=== PATIENT | male | born 1960 | race Caucasian/White ===

== ENCOUNTER 2019-07-10 18:32 | Inpatient (IN) | payer OTHER ==
[~2019-07-10] VITALS: Ht 165.1 cm; Wt 104.5 kg
[2019-07-10 16:00] VITALS: BP 162/92
[2019-07-10] MEDS ORDERED: SANDIMMUNE100 MG PO (19:24)
[2019-07-10] MEDS ORDERED: PREDNISONE2.5 MG PO (19:24)
[2019-07-10] MEDS ORDERED: NORVASC2.5 MG PO (19:26)
[2019-07-10] MEDS ORDERED: SYNTHROID50 MCG PO (19:27)
[2019-07-10] MEDS ORDERED: ELIQUIS5 MG PO (19:27)
[2019-07-10 20:00] VITALS: BP 147/94
[2019-07-10] MEDS ORDERED: NORVASC5 MG PO (20:16)
[2019-07-10] MEDS ORDERED: FUROSEMIDE20 MG PO (20:16)
[2019-07-10 21:35] LABS: BASOPHILS 0.4 % (0-2); EOSINOPHILS 2.3 % (0-7); HEMATOCRIT 35.1 % (42.0-54.0); HEMOGLOBIN 11.8 g/dL (13.5-17.5); IMMATURE GRANULOCYTES 0.1 % (0-5); LYMPHOCYTES 29.9 % (15-50); MCH 31.6 pg (26.0-34.0); MCHC 33.6 g/dL (31.0-37.0); MCV 93.9 fL (80.0-100.0); MEAN PLATELET VOLUME 9.6 fL (7.4-10.4); NEUTROPHILS 60.3 % (40-80); PLATELET COUNT 242 10x3/uL (130-400); RBC 3.74 10x6/uL (4.20-6.10); RDW 13.1 % (11.5-14.5); WBC 8.4 10x3/uL (4.8-10.8)
[2019-07-10 21:36] LABS: CKMB 1.1 U/L (0.0-3.6); CREATINE KINASE 125 UL (21-232); TROPONIN-I 0.029 ng/mL (0.000-0.060)
[2019-07-10 21:47] LABS: ANION GAP 12.6 mmol/L (8-16); CALCIUM 8.2 mg/dL (8.5-10.1); CARBON DIOXIDE 24.6 mmol/L (21.0-32.0); MAGNESIUM - SERUM 1.9 mg/dL (1.8-2.4); PHOSPHOROUS 3.8 mg/dL (2.5-4.9); POTASSIUM - SERUM 4.2 mmol/L (3.5-5.1)
[2019-07-10 22:55] VITALS: BP 147/94; Ht 165.1 cm; Wt 104.5 kg
[2019-07-11 02:53] LABS: INR 1.08 (0.85-1.17)
[2019-07-11 03:14] LABS: CKMB 1.1 U/L (0.0-3.6); CREATINE KINASE 110 UL (21-232); PRO BNP 883 pg/mL (0-125); THYROID STIMULATING HORMONE 1.62 uIU/mL (0.36-3.74); TROPONIN-I 0.037 ng/mL (0.000-0.060)
[2019-07-11 04:00] VITALS: BP 144/100; BP 146/85
[2019-07-11 08:56] VITALS: BP 146/94
[2019-07-11 09:21] LABS: CKMB 0.9 U/L (0.0-3.6); CREATINE KINASE 108 UL (21-232); TROPONIN-I 0.024 ng/mL (0.000-0.060)
--- NOTE | 2019-07-11 10:28 | NUR ---
LEAVING FOR STRESS TEST BY W/C.
[2019-07-11 11:23] LABS: BASOPHILS 0.7 % (0-2); CALCIUM 8.8 mg/dL (8.5-10.1); CARBON DIOXIDE 22.5 mmol/L (21.0-32.0); CREATININE - SERUM 3.9 mg/dL (0.6-1.3); EOSINOPHILS 2.9 % (0-7); HEMATOCRIT 37.6 % (42.0-54.0); HEMOGLOBIN 12.5 g/dL (13.5-17.5); IMMATURE GRANULOCYTES 0.4 % (0-5); LYMPHOCYTES 33.6 % (15-50); MCH 31.4 pg (26.0-34.0); MCHC 33.2 g/dL (31.0-37.0); MCV 94.5 fL (80.0-100.0); MEAN PLATELET VOLUME 10.1 fL (7.4-10.4); MONOCYTES 9.1 % (2-11); NEUTROPHILS 53.3 % (40-80); PLATELET COUNT 278 10x3/uL (130-400); POTASSIUM - SERUM 4.5 mmol/L (3.5-5.1); RBC 3.98 10x6/uL (4.20-6.10); RDW 13.1 % (11.5-14.5); WBC 7.7 10x3/uL (4.8-10.8)
--- NOTE | 2019-07-11 12:00 | NUR ---
BACK FROM STRESS TEST. DIET RESUMED.
[2019-07-11 15:48] LABS: BILIRUBIN NEGATIVE (NEGATIVE); GLUCOSE NEGATIVE (NEGATIVE); KETONE NEGATIVE (NEGATIVE); NITRITE NEGATIVE (NEGATIVE); SPECIFIC GRAVITY 1.005 (1.005-1.020); UROBILINOGEN NORMAL (NORMAL)
--- NOTE | 2019-07-11 16:05 | NUR ---
URINE SPECIMEN COLLECTED AND TAKEN TO LAB.
[2019-07-11 19:23] VITALS: BP 150/104
--- NOTE | 2019-07-11 19:39 | NUR ---
RECEIVED BEDSIDE REPORT. PATIENT IS ALERT AND ORIENTED, RESTING COMFORTABLY IN BED. RESPIRATIONS ARE EVEN AND UNLABORED. NO S/S OF DISTRESS. NO C/O PAIN. NEEDS MET. CALL LIGHT WITHIN REACH. WILL CPOC.
[2019-07-11 20:00] VITALS: BP 149/97
[2019-07-12 04:00] VITALS: BP 138/91
[2019-07-12 05:07] LABS: BASOPHILS 0.6 % (0-2); EOSINOPHILS 2.2 % (0-7); HEMATOCRIT 36.8 % (42.0-54.0); HEMOGLOBIN 12.5 g/dL (13.5-17.5); IMMATURE GRANULOCYTES 0.5 % (0-5); LYMPHOCYTES 30.5 % (15-50); MCH 31.7 pg (26.0-34.0); MCV 93.4 fL (80.0-100.0); MEAN PLATELET VOLUME 9.8 fL (7.4-10.4); MONOCYTES 10.6 % (2-11); NEUTROPHILS 55.6 % (40-80); PLATELET COUNT 260 10x3/uL (130-400); RBC 3.94 10x6/uL (4.20-6.10); RDW 13.1 % (11.5-14.5); WBC 8.8 10x3/uL (4.8-10.8)
[2019-07-12 05:17] LABS: CALCIUM 8.6 mg/dL (8.5-10.1); CARBON DIOXIDE 22.8 mmol/L (21.0-32.0); CREATININE - SERUM 4.1 mg/dL (0.6-1.3); MAGNESIUM - SERUM 1.9 mg/dL (1.8-2.4); PHOSPHOROUS 4.2 mg/dL (2.5-4.9); POTASSIUM - SERUM 4.8 mmol/L (3.5-5.1)
--- NOTE | 2019-07-12 07:15 | NUR ---
RECEIVED PT IN BED AAOX4 RESP UNLABORED SKIN W/D COLOR WNL DENIES ANY NEEDS OR DISCOMFORT AT THIS TIME NAD NOTED
[2019-07-12 10:17] VITALS: BP 140/90
[2019-07-12] MEDS ORDERED: ISOSORBIDE MONO20 MG PO (12:05)
--- NOTE | 2019-07-12 13:20 | NUR ---
REVIEWED DISCHARGE INSTRUCTIONS WITH PT STATES UNDERSTANDING COPY GIVEN DCD SALINE LOCK TO RT HAND SITE FREE OF REDNESS OR EDEMA PT DISCHARGED HOME IN STABLE CONDITION WITH ALL PERSONAL BELONGINGS
--- NOTE | 2019-07-15 12:01 | MORECARE ---
CASE MANAGEMENT DISCHARGE SUMMARY PATIENT: SARAH LAGOS UNIT: [id number] ADM DATE: 07/11/19 AGE: 59 : 64 SEX: M ROOM/BED: D.2116 AUTHOR: ADAMA DURON PHYSICIAN: REFERRING PHYSICIAN: YUMIKO DELGADO MD DATE OF SERVICE: 07/15/19 Discharge Plan Patient Name: SARAH LAGOS [facility] : 1960 Planned Disposition: Anticipated Discharge Date: Discharge Date: 07/12/2019 Expected LOS: Initial Reviewer: [email or web address] Initial Review Date: 07/10/2019 Generated: 07/15/19 1:00 pm Patient Name: SARAH LAGOS Page [phone] at 1201 All edits/amendments must be made on the electronic document DICTATION DATE: 07/15/19 1201 DIRECTOR OF OUTREACH: MARITZA 07/15/19 1201 RPT#: [id number] DC DATE:07/12/19 STATUS: DIS IN [facility] [address] [place] [address] END OF REPORT
== END 2019-07-12 13:20 | disposition home or self-care (01) | DRG 303 ==
LOC: D.M2 18:32 → OBSVTIME 18:32 → D.M2 18:32
PROVIDERS: Internal Medicine Nephrology; ADMIT Family Medicine; ATTEND Family Medicine
DX: I25.119 Atherosclerotic heart disease of native coronary artery with unspecified angina pectoris (principal); N18.4 Chronic kidney disease, stage 4 (severe); Z94.0 Kidney transplant status; N40.0 Benign prostatic hyperplasia without lower urinary tract symptoms; K21.9 Gastro-esophageal reflux disease without esophagitis; E03.9 Hypothyroidism, unspecified; I12.9 Hypertensive chronic kidney disease with stage 1 through stage 4 chronic kidney disease, or unspecified chronic kidney disease

== ENCOUNTER 2019-10-08 09:33 | Outpatient (CLI) | payer OTHER ==
[~2019-10-08] VITALS: Ht 170.2 cm; Wt 100.0 kg
--- NOTE | ~2019-10-08 | OP ---
PATIENT NAME: SARAH LAGOS MEDICAL RECORD: [id number] :64 LOCATION:D.CAT ADMISSION DATE: SURGEON: PITO MILLS MD DATE OF OPERATION: 10/08/2019 PROCEDURE: Left heart catheterization, selective coronary angiography, right femoral artery approach. CATHETERS: A 5-Malagasy sheath, 5/4 left and right Yennifer, 5/4 pig. The procedure was well tolerated. The patient returned to the carlson. Sheath removed. ExoSeal device placed. FINDINGS: Left ventriculography in 30-degree GRAY view: Normal wall motion and normal systolic function. CORONARY ANATOMY: LEFT MAIN: Left main is free of disease. LAD: Has elongated complex stenosis at proximal portion. This involves the first diagonal. The first diagonal itself is a large vessel and has about 80% stenosis distally. CIRCUMFLEX: Just after the previously placed stent has about 80% stenosis and there bifurcation of the AV groove, circ, and OM itself though large vessel. RIGHT CORONARY ARTERY: Has about 70% stenosis of the mid portion. IMPRESSION: Multivessel coronary artery disease. We will discuss possible coronary bypass grafting with Dr. Palumbo. LAD of the diagonal system will be quite difficult to fix from interventional standpoint. Further recommendations based on above. TRANSINT:[id number] Voice Confirmation ID: [id number] DOCUMENT ID: [id number] PITO MILLS MD CC: [id number] DICTATION DATE: 10/08/19 1349 CREASING MACHINE OPERATOR: 10/08/192136 DEP CLI 10/08/19 [id number] [place] [address]
--- NOTE | ~2019-10-08 | HEMODYNAMI ---
PATIENT:SARAH LAGOS MEDICAL RECORD: [id number] : 64 LOCATION:DSamiCAT ADMISSION DATE: 10/08/19 Generatedon:10/08/201913:43 Patient name: SARAH LAGOS Patient #: [id number] : 1960 Date of study: 10/08/2019 Page: Of Hemodynamic Procedure Report Patient Data Patient Demographics Procedure consent was obtained First Name: SARAH Gender: Male Last Name: DEMOND : 1960 Middle Initial: F Age: 59 year(s) Patient #: [id number] Race: SSN: [id number] Additional ID: [id number] Contact details Address: [address] [place] [address] State: [place] City: [place] Zip code: [address] Past Medical History Allergies: No known allergies Admission Admission Data Admission Date: 10/08/2019 Admission Time: 9:33 Arrival Date: 10/08/2019 Arrival Time: 0:00 Admit Source: Other Insurance Payor: Private health insurance [facility] #: [id number] Height (in.): 66.93 BSA: 2.11 (m2) Height (cm.): 170 BMI: 34.6 (kg/m2) Weight (lbs.): 220.46 Weight (kg.): 100 Lab Results Lab Result Date: 10/08/2019 Lab Result Time: 10:05 Biochemistry Name Units Result Min Max BUN mg/dl 47 --(----)-* 7 18 Creatinine mg/dl 4.4 --(----)-* 0.6 1.3 CBC Name Units Result Min Max Hematocrit % 36.3 *-(----)-- 42 54 Hemoglobin g/dl 12.3 *-(----)-- 13.5 17.5 Procedure Procedure Types Cath Procedure Diagnostic Procedure C [facility] w/Coronaries Procedure Description Procedure Date Procedure Date: 10/08/2019 Procedure Start Time: 13:30 Procedure End Time: 13:39 Procedure Staff Name Function Quinn Reyes MD Performing Physician Nikko Bar RT Monitor Devi Wilhelm RT Scrub Kelly Yost RN Nurse Procedure Data Cath Procedure Fluoroscopy Diagnostic fluoroscopy Total fluoroscopy Time: 1.1 time: 1.1 min min Diagnostic fluoroscopy Total fluoroscopy dose: 527 dose: 527 mGy mGy Contrast Material Contrast Material Type Amount (ml) Isovue 300 57 Entry Location Entry Primary Successful Side Size Upsize Upsize Entry Closure Succes sful Closure Location (Fr) 1 (Fr) 2 (Fr) Remarks Device Remarks Femoral Right 5 Fr Exoseal artery Estimated blood loss: 5 ml Diagnostic catheters Device Type Used For End Catheter Placement MULTIPACK JL 4.0 5Fr Procedure catheter MULTIPACK 3DRC 5Fr Procedure catheter MULTIPACK Pigtail 5 Fr Procedure catheter Procedure Complications No complications Procedure Medications Medication Administration Route Dosage Oxygen etCO2 Nasal cannula 2 l/min Lidocaine 2% added to field 20 Heparin Flush Bag added to field 2 bags (1000units/500ml NS) 0.9% NaCl I.V. 100 ml/hr Versed I.V. 1 mg Fentanyl I.V. 50 mcg Versed I.V. 1 mg Fentanyl I.V. 50 mcg Hemodynamics Rest BSA: 2.11 (m2) HGB: 12.3 (g/dl) O2 Consumption: Estimated: 259.42 (ml/min) O2 Co nsumption indexed: Estimated:122.95 (ml/min/m) Heart Rate: 83 (bpm) Pressure Samples Time Site Value (mmHg) Purpose Heart Use Rate(bpm) 13:35 LV 133/9,14 Snapshot 83 13:35 AO 134/83(108) Pullback 83 13:35 LV 210/37,-17 Pullback 83 Gradients Valve Time Site 1 Site 2 Mean SEP/DFP Peak To Heart Use (mmHg) (sec/min) Peak Rate (mmHg) (bpm) Aortic 13:35 LV AO 39 28 76 83 210/37,-17 134/83(108) Calculations Valve P-P Mean Valve Index Valve Source Name Gradient Area Flow (cm2) Aortic 76 39 76 39 Snapshots Pre Cath Intra NCS Post Cath Vital Signs Time Heart Resp SPO2 etCO2 NIBP (mmHg) Rhythm Pain Sedation Rate (ipm) (%) (mmHg) Status Level (bpm) 12:53:28 80 21 96 0 152/98(129) NSR 0 (11) 10(A) , No pain 12:57:58 78 12 96 0 161/103(138) NSR 0 (11) 10(A) , No pain 13:02:33 80 12 95 35.2 144/96(119) NSR 0 (11) 10(A) , No pain 13:07:01 86 17 96 24.7 141/92(121) NSR 0 (11) 10(A) , No pain 13:11:25 81 17 95 33 148/97(122) NSR 0 (11) 10(A) , No pain 13:15:54 84 11 96 36 152/103(122) NSR 0 (11) 10(A) , No pain 13:20:20 80 14 93 30.7 149/95(124) NSR 0 (11) 10(A) , No pain 13:24:48 84 21 96 33.7 143/96(124) NSR 0 (11) 10(A) , No pain 13:29:17 86 11 93 42 138/92(121) NSR 0 (11) 9(A) , No pain 13:33:45 82 11 95 38.2 142/83(116) NSR 0 (11) 9(A) , No pain 13:38:09 80 12 96 36.7 140/95(117) NSR 0 (11) 10(A) , No pain Medications Time Medication Route Dose Verified Delivered Reason Notes Eff ectiveness by by 12:56:01 Oxygen etCO2 2 Quinn Shawnie used for Nasal l/min St Jimmy Yost material coordinator cannula 12:56:08 Lidocaine 2% added 20ml Quinn Ball for local to vial [facility] anesthetic field MD KELLY 12:56:16 Heparin Flush added 2 Quinn Quinn used for Bag to bags [facility] procedure (1000units/500ml field MD KELLY NS) 12:56:25 0.9% NaCl I.V. 100 Quinn Mendoza Per ml/hr St Jimmy Yost RN physician 13:28:55 Versed I.V. 1 mg Quinn Shawnie for [facility] Jimmy Yost RN sedation 13:29:01 Fentanyl I.V. 50 Quinn Escobarie for mcg St Jimmy Yost RN sedation 13:34:15 Versed I.V. 1 mg Quinn Escobarie for EricJimmy Yost RN sedation 13:34:19 Fentanyl I.V. 50 [facility] Procedure Log Time Note 12::30 Informed consent obtained and on chart 12:29:13 Admit Source: Other 12:29:17 Insurance Payor : Private health insurance 12:29:29 Arrival Date: 10/08/2019 12:00:00 AM 12:29:33 Patient Weight : 220.46 lbs 12:29:40 Patient Height : 66.93 inches 12:31:04 Lab Result : Hemoglobin 12.3 g/dl 12:31:04 Lab Result : Hematocrit 36.3 % 12:31:04 Lab Result : BUN 47 mg/dl 12:31:04 Lab Result : Creatinine 4.4 mg/dl 12:33:51 Diagnostic Cath Status : Elective 12:34:06 ACC Patient presents with Stable Angina CCS Anginal Class 2--Slight limitation of ordinary activity. 12:34:12 Procedure Status Elective Heart Cath (OP). 12:34:15 Kelly Yost RN sent for patient. Start room use. 12:34:15 Time tracking: Regular hours (M-F 7:00 - 5:00) 12:34:18 Plan of Care:Hemodynamics will remain stable., Cardiac rhythm will remain stable., Comfort level will be maintained., Respiratory function will remain adequate., Patient/ family verbilizes understanding of procedure., Procedure tolerated without complication., Recovers from procedure without complications.. 12:34:38 H&P Date Dictated: 10/01/2019 Within 30 days and on chart., H&P Addendum completed by physician on day of procedure. (MUST COMPLETE FOR ALL OUTPATIENTS). 12:47:22 Patient received from Pre/Post Procedure Room to CCL 1 Alert and oriented. Tansferred to table in Supine position. 12:47:24 Warm blankets applied, and lanie hugger turned on for patient comfort. 12:47:28 Correct patient and procedure confirmed by team. 12:47:28 ECG and BP/O2 sat monitors applied to patient. 12:47:29 Pre-procedure instructions explained to patient. 12:47:30 Pre-op teaching completed and patient verbalized understanding. 12:47:31 Family in waiting room. 12:47:33 Patient NPO since Midnight. 12:47:47 Patient allergic to No known allergies 12:49:04 Is the patient allergic to Iodine/contrast media? No. 12:50:15 Is patient on blood thinner?Yes 12:50:19 ACC The patient was administered the following blood thiners within the last 24 hours: None 12:50:29 Patient diabetic? No. 12:50:41 Previous problem with sedation/anesthesia? No ? 12:50:42 Snore? Yes 12:50:43 Sleep apnea? No 12:50:44 Deviated septum? No 12:50:45 Opens mouth fully? Yes 12:50:45 Sticks out tongue? Yes 12:50:47 Airway obstruction? No ? 12:50:51 Dentures? No ? 12:50:56 Pre procedure: right dorsailis pedis pulse 2+ Normal; easily identifiable; not easily obliterated 12:50:58 Patient pain scale 0/10 ?. 12:51:13 IV patent on arrival in left hand with 0.9% NaCl at O. 12:51:15 Lab results completed and on chart. 12:51:29 Risk of Mortality: <.1% 12:51:38 Risk of blood transfusion: 1.2% 12:51:43 Risk of SAFIA: 7.4% 12:51:48 Right groin area was prepped with chlora-prep and draped in sterile fashion 12:51:49 Alarms reviewed by R. N. 12:51:49 Sharps counted by scrub and verified by R.N. 12:51:51 Use device set Femoral Dx 12:51:52 ACIST Syringe (03074) opened to sterile field. 12:51:52 Bag Decanter (2002S) opened to sterile field. 12:51:53 Medline Cath Pack ([id number]) opened to sterile field. 12:51:53 ACIST Hand Control (22585) opened to sterile field. 12:51:54 ACIST Manifold (94542) opened to sterile field. 12:51:55 DIAGNOSTIC Multipack 5Fr catheter set ([id number]) opened to sterile field. 12:51:55 Tegaderm 4 x 4 (1626W) opened to sterile field. 12:51:57 SHEATH 5FR Tuleta (GXX405) opened to sterile field. 12:51:58 EMERALD Guide Wire (125-309) opened to sterile field. 12:52:02 Vital chart was started 12:56:01 Oxygen 2 l/min etCO2 Nasal cannula was administered by Kelly Yost RN; used for procedure; Verbal order read back and verified. 12:56:08 Lidocaine 2% 20ml vial added to field was administered by Quinn Reyes MD; for local anesthetic; Verbal order read back and verified. 12:56:16 Heparin Flush Bag (1000units/500ml NS) 2 bags added to field was administered by Quinn Reyes MD; used for procedure; Verbal order read back and verified. 12:56:25 0.9% NaCl 100 ml/hr I.V. was administered by Kelly Yost RN; Per physician; Verbal order read back and verified. 12:57:05 Baseline sample Acquired. 12:57:08 Rhythm: sinus rhythm 12:57:09 Full Disclosure recording started 13:02:55 Zero performed for pressure channel P1 13:15:20 Baseline sample Acquired. 13:17:55 Zero performed for pressure channel P1 13:27:31 Physician arrived 13:27:31 --------ALL STOP TIME OUT------ 13:27:31 Final Timeout: patient, procedure, and site verified with staff and physician. All members of the team are in agreement. 13:27:32 Right groin site verified by team. 13:27:35 Fire Safety Assessment: A--An alcohol-based skin anteseptic being used preoperatively., C--Open oxygen or nitrous oxide is being used., D--An ESU, laser, or fiber-optic light is being used. 13:27:38 Physical assessment completed. ASA score P 2 - A patient with mild systemic disease as per Quinn Reyes MD. 13:27:40 5) <15 or on dialysis Very severe, or end stage kidney failure. 13:27:46 Maximum allowable contrast dose (3.7 X eGFR X 0.75)44 ml. 13:27:49 Sedation plan: IV Moderate Sedation Medication:Versed, Fentanyl 13:28:55 Versed 1 mg I.V. was administered by Kelly Yost RN; for sedation; Verbal order read back and verified. 13:29:01 Fentanyl 50 mcg I.V. was administered by Kelly Yost RN; for sedation; Verbal order read back and verified. 13:29:59 Procedure started. 13:30:01 Local anesthetic to right femoral artery with Lidocaine 2% by Quinn Reyes MD.INITIAL ACCESS ONLY 13:30:08 A 5 Fr sheath was inserted into the Right Femoral artery 13:31:17 A MULTIPACK JL 4.0 5Fr catheter was advanced over the wire and used for Procedure. 13:33:45 LCA angiography performed. 13:33:47 Catheter exchanged over wire. 13:33:56 A MULTIPACK 3DRC 5Fr catheter was advanced over the wire and used for Procedure. 13:34:00 RCA angiography performed. 13:34:15 Versed 1 mg I.V. was administered by Kelly Yost RN; for sedation; Verbal order read back and verified. 13:34:19 Fentanyl 50 mcg I.V. was administered by Kelly Yost RN; for sedation; Verbal order read back and verified. 13:34:39 Catheter exchanged over wire. 13:34:43 A MULTIPACK Pigtail 5 Fr catheter was advanced over the wire and used for Procedure. 13:35:36 LV gram done using GRAY 13:35:37 LV hemodynamics recorded. 13:35:41 Injector settings: Ml/sec: 10, Volume: 20, 13:35:46 EF : 55 % 13:35:57 Catheter removed. 13:35:59 EXOSEAL 5Fr (EX500) opened to sterile field. 13:36:08 Sheath removed intact; hemostasis achieved with Exoseal to the Right Femoral artery. 13:36:10 Procedure ended.(Physican Out) 13:36:32 Fluoroscopy time 01.10 minutes. 13:36:40 Fluoroscopy dose: 527 mGy 13:36:40 Flurop Dose total: 527 13:36:46 Dose Area Product 11096 mGy/cm. 13:36:50 Contrast amount:Isovue 300 57ml. 13:36:52 Maximum allowable dose exceeded? Yes. 13:36:52 Sharps counted by scrub and verified by R.N. 13:36:53 Insertion/operative site no bleeding no hematoma. 13:36:56 Post-op/insertion site Right Femoral artery dressed using a 4 x 4 and Tegaderm. 13:36:59 Post right femoral artery:stable, soft, clean and dry 13:37:00 Post Procedure Pulses reassessed and unchanged 13:37:03 Post-procedure physical assessment completed. ASA score P 2 - A patient with mild systemic disease as per Quinn Reyes MD. 13:37:07 Post procedure rhythm: unchanged. 13:37:12 Estimated blood loss: 5 ml 13:37:14 Post procedure instruction explained to patient.Patient verbalizes understanding. 13:37:14 Patient needs reinforcement of post procedure teaching. 13:38:05 Procedure and supply charges have been captured, reviewed, submitted and are correct. 13:38:08 Procedure Complication : No complications 13:38:16 Vital chart was stopped 13:38:20 [facility] Findings: MVD- CABG consult 13:39:44 Operative report dictated upon procedure completion. 13:39:45 See physician's report for complete and final results. 13:39:46 Report given to Pre/Post Procedure Room. 13:39:51 Patient transfered to Pre/Post Procedure Room with Stretcher. 13:39:52 Procedure ended. 13:39:52 Full Disclosure recording stopped 13:40:04 End room use (Document Last) Device Usage Item Name Manufacture Quantity Catalog Hospital Part Current Minimal L ot# / Number Charge Number Stock Stock Serial# Code ACIST Acist 1 50803 [id number] 727878 118536 20 Syringe Medical (11108) Systems Inc Bag Microtek 1 2001S 248324 75232 157770 5 Decanter Medical Inc. (2001S) Medline Medline 1 [id number] 080076 25137 632343 5 Cath Pack ([id number]) ACIST Hand Acist 1 98214 893619 081607 815848 5 Control Medical (56461) Systems Inc ACIST Acist 1 82932 998451 400355 973023 5 Manifold Medical (02992) Systems Inc DIAGNOSTIC Cardinal 1 [id number] 673705 65851 811506 30 Multipack Health 5Fr catheter set (BF8054) Tegaderm 4 3M 1 1626W 500244 462215 032307 5 x 4 (1626W) SHEATH 5FR Terumo 1 SPG153 011160 028526 008818 5 [place]uleta (VHU452) EMERALD Cardinal 1 502-455 559588 106472 619613 5 Guide Wire [facility] (502-464) MULTIPACK Cardinal 1 413356 5 JL 4.0 5Fr Health catheter MULTIPACK Cardinal 1 812949 5 3DRC 5Fr Health catheter MULTIPACK Cardinal 1 902908 5 Pigtail 5 Health Fr catheter EXOSEAL 5Fr Cardinal 1 EX500 786029 307266 869123 10 (EX500) Health Signature Audit [place]unk Stage Time Signature Unsigned Intra-Procedure 10/08/2019 Kelly Yost 1:42:21 PM RN; Nikko Bar RT(R); Quinn Reyes MD [facility] [address] [place] [address]
[~2019-10-08 09:33] MED LIST: ELIQUIS5 MG PO; FUROSEMIDE20 MG PO; ISOSORBIDE MONO20 MG PO; NORVASC2.5 MG PO; NORVASC5 MG PO; PREDNISONE2.5 MG PO; SANDIMMUNE100 MG PO; SYNTHROID50 MCG PO
[2019-10-08] MEDS ORDERED: RANEXA500 MG PO (09:52)
[2019-10-08 10:09] VITALS: BP 151/97; BMI 34.5
[2019-10-08 10:20] LABS: BASOPHILS 0.4 % (0-2); EOSINOPHILS 2.4 % (0-7); HEMATOCRIT 36.3 % (42.0-54.0); HEMOGLOBIN 12.3 g/dL (13.5-17.5); IMMATURE GRANULOCYTES 0.5 % (0-5); LYMPHOCYTES 34.3 % (15-50); MCH 30.7 pg (26.0-34.0); MCHC 33.9 g/dL (31.0-37.0); MCV 90.5 fL (80.0-100.0); MEAN PLATELET VOLUME 9.3 fL (7.4-10.4); MONOCYTES 7.8 % (2-11); NEUTROPHILS 54.6 % (40-80); PLATELET COUNT 271 10x3/uL (130-400); RBC 4.01 10x6/uL (4.20-6.10); RDW 13.2 % (11.5-14.5); WBC 8.3 10x3/uL (4.8-10.8)
[2019-10-08 10:36] LABS: ANION GAP 13.4 mmol/L (8-16); CALCIUM 9.5 mg/dL (8.5-10.1); CARBON DIOXIDE 22.9 mmol/L (21.0-32.0); CHOL - HDL RATIO 8.1 ratio (2.3-4.9); CREATININE - SERUM 4.4 mg/dL (0.6-1.3); LDL-HDL RATIO 5.5 ratio (1.5-3.5); POTASSIUM - SERUM 4.3 mmol/L (3.5-5.1)
--- NOTE | 2019-10-08 13:56 | NUR ---
PT RECEIVED BACK TO ROOM VIA STRETCHER FOR RECOVERY. PT AWAKE, DROWSY DENIES PAIN OR DISCOMFORT. IV PATENT INFUSING VIA PUMP PER ORDERS. PT PLACED ON CARDIAC MONITORS AND 02 VIA NC AT 2L. HR 80, BP 158/103, RR 15, SAT 98. R GROIN SOFT, DRESSING CDI NO S/S HEMATOMA OR BLEEDING. LEG PINK AND WARM, PEDAL PULSES PALPABLE. PT INSTRUCTED TO KEEP HEAD ON PILLOW AND LEG STRAIGHT, HE VERBALIZED UNDERSTANDING. CALL LIGHT IN REACH.
--- NOTE | 2019-10-08 14:15 | NUR ---
PT RESTING COMFORTABLY, R GROIN SOFT, DRESSING REMAINS CDI NO S/S HEMATOMA OR BLEEDING NOTED. VSS AT PRESENT. CALL LIGHT IN REACH.
--- NOTE | 2019-10-08 14:39 | NUR ---
DR MILLS AT BS DISCUSSING W PT PLAN OF CARE AND PROCEDURE RESULTS. NO NEW ORDERS REC'D. R GROIN SOFT, DRESSING CDI NO S/S HEMATOMA OR BLEEDING NOTED. VSS. CALL LIGHT IN REACH
--- NOTE | 2019-10-08 14:59 | NUR ---
PT RESTING COMFORTABLY, R GROIN SOFT, DRESSING REMAINS CDI NO S/S HEMATOMA NOTED. HOB ELEVATED SLIGHTLY, SPRITE SERVED. SANDWICH OFFERED BUT PT DECLINES AT THIS TIME. CALL LIGHT IN REACH
--- NOTE | 2019-10-08 15:15 | NUR ---
DISCHARGE INSTRUCTIONS REVIEWED W PT, HE VERBALIZED UNDERSTANDING. IV REMOVED W CATH INTACT. R GROIN SOFT, DRESSING REMAINS CDI NO S/S HEMATOMA OR BLEEDING NOTED. MONITORS REMOVED AND PT UP TO DRESS FOR DISCHARGE. PT WAITING ON DR PAREDES TO VISIT HIM BEFORE DISCHARGE.
--- NOTE | 2019-10-08 15:34 | NUR ---
PT AMBULATED TO BR, VOIDING W/O DIFFICULITY. BACK TO ROOM WAITING ON DR PAREDES.
--- NOTE | 2019-10-08 15:44 | NUR ---
DR PAREDES AT DISCUSSING POSSIBLE CABG.
[2019-10-08 15:59] VITALS: Ht 170.2 cm; Wt 100.0 kg
--- NOTE | 2019-10-08 16:00 | NUR ---
PT DISCHARGED VIA WC TO SISTER WAITING IN PRIVATE VEHICLE. PT HAD ALL BELONGINGS AND DISCHARGE INFORMATION
== END 2019-10-08 16:00 | disposition home or self-care (01) ==
LOC: D.CATH 09:33
PROVIDERS: ATTEND Internal Medicine Interventional Cardiology
DX: I25.119 Atherosclerotic heart disease of native coronary artery with unspecified angina pectoris (principal); I25.2 Old myocardial infarction; E78.5 Hyperlipidemia, unspecified

== ENCOUNTER 2019-10-11 09:20 | Inpatient (IN) | payer OTHER ==
[~2019-10-11] VITALS: Ht 170.2 cm; Wt 98.7 kg
[~2019-10-11 09:20] MED LIST changes: +RANEXA500 MG PO
[2019-10-11 11:00] LABS: BASOPHILS 0.1 % (0-2); BILIRUBIN NEGATIVE (NEGATIVE); HEMATOCRIT 35.6 % (42.0-54.0); HEMOGLOBIN 12.3 g/dL (13.5-17.5); IMMATURE GRANULOCYTES 0.4 % (0-5); KETONE NEGATIVE (NEGATIVE); LYMPHOCYTES 33.9 % (15-50); MCH 31.3 pg (26.0-34.0); MCHC 34.6 g/dL (31.0-37.0); MCV 90.6 fL (80.0-100.0); MEAN PLATELET VOLUME 9.4 fL (7.4-10.4); MONOCYTES 10.1 % (2-11); NEUTROPHILS 53.5 % (40-80); NITRITE NEGATIVE (NEGATIVE); PLATELET COUNT 269 10x3/uL (130-400); RBC 3.93 10x6/uL (4.20-6.10); RDW 13.2 % (11.5-14.5); UROBILINOGEN NORMAL (NORMAL); WBC 7.4 10x3/uL (4.8-10.8)
[2019-10-11 11:01] LABS: APTT 27.5 SECONDS (22.8-39.4); PROTIME 13.1 SECONDS (11.6-15.0)
[2019-10-11 11:02] LABS: BACTERIA FEW /hpf (NEGATIVE); EPITHELIAL CELLS 0-5 /hpf (0-5); WHITE CELLS - URINE 0-5 /hpf (NEGATIVE)
[2019-10-11 11:19] LABS: ALBUMIN 3.5 g/dL (3.4-5.0); ANION GAP 14.1 mmol/L (8-16); BILIRUBIN - TOTAL 0.51 mg/dL (0.2-1.3); CALCIUM 8.5 mg/dL (8.5-10.1); CARBON DIOXIDE 25.4 mmol/L (21.0-32.0); CREATININE - SERUM 4.4 mg/dL (0.6-1.3); PHOSPHOROUS 3.1 mg/dL (2.5-4.9); POTASSIUM - SERUM 4.5 mmol/L (3.5-5.1); PROTEIN - SERUM 7.7 g/dL (6.4-8.2); T4 THYROXIN - FREE 1.16 ng/dL (0.76-1.46); THYROID STIMULATING HORMONE 3.35 uIU/mL (0.36-3.74); URIC ACID 7.6 mg/dL (2.6-7.2)
[2019-10-14] VITALS (43 sets, daily range): BP systolic 110–143; BP diastolic 61–92; BMI 34.4; BMI 35.1
--- NOTE | 2019-10-14 14:00 | NUR ---
PT ARRIVED TO UNIT AROUND 1348 VIA BED. CONNECTED TO ICU MONITOR. ON VENT 100%, R-14, TV 550, PEEP 5. ETT SIZE 8.5 22 AT LIP RIGHT. RIJ WITH PLASMOLYTE AT 100ML/HR, AMIODARONE AT 33.3ML/HR AND MEKA AT 0.4MCG/KG/MIN. MIDSTERNAL DRESSING C/D/I. SUBSTERNAL CT X 2 TO 20CM SUCTION, NO AIR LEAK NOTED. LOYDA DRAIN IN PLACE. RLE HARVEST SITES WRAPPED IN COBAN DRESSING. TPM WIRE IN PLACE. DIAS CATHETER WITH YELLOW URINE NOTED. L-RADIAL DELISA SECURED WITH WRIST PROTECTOR. RIGHT FOREARM FISTULA C/D/I. WRIST RESTRAINTS IN PLACE UPON ARRIVAL. NURSE AT BEDSIDE FOR CLOSE MONITORING.
--- NOTE | 2019-10-14 17:30 | NUR ---
ARUN TEMP 96.6. ROOM TEMPERATURE INCREASED. BLANKETS PROVIDED. PT WAKES UP TO VOICE BUT DOES NOT REMAIN AWAKE. WILL CONTINUE TO MONITOR CLOSELY.
--- NOTE | 2019-10-14 18:25 | NUR ---
ON CPAP TRAIL AT THIS TIME. OPENS EYES AND FOLLOWS SIMPLE COMMANDS. WILL CONTINUE TO MONITOR.
--- NOTE | 2019-10-14 19:00 | NUR ---
REPORT RECEIVED. PT ON VENT, AROUSES TO VOICE BUT QUICKLY DRIFTS OFF. RT ARM RESERVE, LT RADIAL A-LINE IN PLACE, ZERO'D WITH GOOD WAVEFORM. RT IJ CVL IN FUSING, SEE IV FLOWSHEET. CT X2, LOYDA DRAIN X1, DIAS IN PLACE. SOFT WRIST RESTRAINTS IN PLACE, WILL CONTINUE TO MONITOR.
--- NOTE | 2019-10-14 21:29 | NUR ---
OGT INSERTED PER MD ORDER. PLACEMENT CHECKED VIA AUSCULTATION AND XRAY.
[2019-10-15] VITALS (106 sets, daily range): BP systolic 107–157; BP diastolic 62–86; Ht 170.2 cm; Wt 98.7 kg
[2019-10-15 04:31] LABS: BASOPHILS 0 % (0-2); EOSINOPHILS 0 % (0-7); HEMATOCRIT 31.7 % (42.0-54.0); HEMOGLOBIN 10.5 g/dL (13.5-17.5); IMMATURE GRANULOCYTES 0.4 % (0-5); LYMPHOCYTES 8.5 % (15-50); MCH 30.6 pg (26.0-34.0); MCHC 33.1 g/dL (31.0-37.0); MCV 92.4 fL (80.0-100.0); MONOCYTES 5.3 % (2-11); NEUTROPHILS 85.8 % (40-80); PLATELET COUNT 242 10x3/uL (130-400); RBC 3.43 10x6/uL (4.20-6.10); RDW 14.4 % (11.5-14.5); WBC 14.4 10x3/uL (4.8-10.8)
[2019-10-15 04:44] LABS: ALBUMIN 3.3 g/dL (3.4-5.0); ANION GAP 16.4 mmol/L (8-16); BILIRUBIN - TOTAL 0.39 mg/dL (0.2-1.3); CARBON DIOXIDE 24.6 mmol/L (21.0-32.0); CREATININE - SERUM 5.2 mg/dL (0.6-1.3); MAGNESIUM - SERUM 2.3 mg/dL (1.8-2.4); PHOSPHOROUS 4.4 mg/dL (2.5-4.9); PROTEIN - SERUM 6.6 g/dL (6.4-8.2)
--- NOTE | 2019-10-15 05:25 | NUR ---
DRESSINGS CHANGED, CHG BATH GIVEN.
--- NOTE | 2019-10-15 06:15 | NUR ---
DR PAREDES PAGED REGARDING LAB VALUES. NEW ORDERS RECEIVED.
--- NOTE | 2019-10-15 06:35 | NUR ---
DR SANDOVAL PAGED REGARDING LAB VALUES. UPDATED ON STATUS, NEW ORDERS RECEIVED.
--- NOTE | 2019-10-15 07:40 | NUR ---
SHIFT REPORTE RECIEVED. PT CONTINUES ON VENT R4, TV 550, FIO65%, PEEP 5. OPENS EYES AND FOLLOWS SIMPLE COMMANDS. MIDSTERNAL DRESSING C/D/I. SUBTERNAL CT X 2 TO 20CM SUCTION. NO AIR LEAK. LOYDA DRAIN IN PLACE. LEFT RADIAL DELISA SECURED. RIGHT ARM RESERVE. FISTULA TO RFA. RIJ CVL WITH PLASMOLYTE AT 100ML/HR, AMIODARONE AT 16.7ML/HR, NITROGLYCERIN AT 20MCG/MIN, INSULIN AT 1UNIT/HR AND ZINACEF AT 12.8ML/HR. DIAS CATHETER IN PLACE WITH YELLOW URINE IN PLACE. WRIST RESTRAINTS IN PLACE PER ORDER. R LEG HARVES SITES OPEN TO AIR. EVER AND SCD TO LEFT LEG. SAFETY MEASURES INPLACE. CLOSE ICU MONITORING.
--- NOTE | 2019-10-15 07:52 | NUR ---
ABG RESULTS REPORTED TO DR. PAREDES.
--- NOTE | 2019-10-15 08:33 | OP ---
PATIENT NAME: SARAH LAGOS MEDICAL RECORD: [id number] :64 LOCATION:D.CVI D.CV06 ADMISSION DATE:10/14/19 SURGEON: VICENTE PAREDES MD DATE OF OPERATION: 10/14/2019 SURGEON: Vicente Paredes MD PROCEDURE PERFORMED: 1. Coronary artery bypass graft times 4 (left internal mammary to LAD, reverse saphenous vein graft from aorta to first diagonal, aorta to first obtuse marginal, aorta to posterior descending artery). 2. Endoscopic saphenous vein harvest. 3. Excisional removal of 3 mm pigmented skin nevus lower right anterior chest at the chest tube site. PREOPERATIVE DIAGNOSES: Coronary artery disease, chronic kidney failure with failing transplant. POSTOPERATIVE DIAGNOSES: Coronary artery disease, chronic kidney failure with failing transplant, pigmented skin nevus. ANESTHESIA: General endotracheal anesthesia. ESTIMATED BLOOD LOSS: Total cardiopulmonary bypass with Cell Saver retransfusion, 1 packed red blood cells and 1 platelets. COMPLICATIONS: None. SPECIMENS: Pigmented skin nevus with excision. CONDITION: Stable. DISPOSITION: CV ICU. OPERATIVE FINDINGS: 1. Large right heart consistent with a patent right arm fistula. 2. Marginal urine output through the transplant kidney during cardiopulmonary bypass. 3. LAD 1.5 mm with severe disease and posterior plaque, good Doppler signal after anastomosis and after reversal of heparin. 4. First diagonal 1.5 mm with severe disease. 5. First obtuse marginal 2.0 mm with diffuse plaque. 6. Posterior descending artery 1.5 mm with distal plaque. INDICATION: Unstable angina, severe multivessel coronary artery disease, in need of replacement, kidney transplant. DESCRIPTION OF PROCEDURE: The patient was brought to the operating suite. General anesthesia was obtained, the patient was prepped and draped. Greater saphenous vein harvested endoscopically from the right lower extremity. Side branches were divided with electrocautery. Vessel was ligated proximally, distally and removed. Side branches were tied or clipped. The leg was irrigated and closed in 2 layers. Median sternotomy incision was made. Subcutaneous tissue divided with OPERATIVE REPORT [id number] SARAH LAGOS electrocautery. Sternum was divided with a saw. The left hemisternum was elevated. Left pleural cavity was entered. Left internal mammary artery and vein was taken down as a pedicle graft. Sternal retractor was placed. Pericardium was opened. Heparin was given. Aorta was cannulated. Dual stage venous cannula was inserted. Internal mammary clipped distally and made ready for anastomosis. Activated clotting time was appropriately elevated. The patient was placed on cardiopulmonary bypass. The sites for distal anastomoses were selected. Antegrade cardioplegia cannula was inserted. The patient's temperature drifted downward. Crossclamp was placed. Cardioplegia given antegrade and this repeated at 20-minute intervals including down the completed vein grafts. Distal anastomosis was performed in standard technique. Proximal anastomosis with single cross-clamp technique. Aortic root de-aired by removing the cross clamp, venting the root, tying the proximal anastomosis, de-airing the vein graft and restoring flow. Proximal and distal anastomotic sites inspected for bleeding. The patient resumed spontaneous rhythm, weaned from cardiopulmonary bypass after being fully rewarmed and was stable. The patient was decannulated. The cannula sites were oversewn. Protamine was given. Thorough irrigation was undertaken. Graft lay appropriate, hemostasis was ensured. Drain was placed in the mediastinum with the tip in the right pleural cavity and one in the patient's left chest cavity along with a drain. Pericardial fat loosely reapproximated in the midline after placement of a ventricular pacing wire. Left chest was evacuated and irrigated. The internal mammary harvest site inspected for bleeding. Sternum was closed with wires. Fascia was closed. Subcutaneous tissue was closed. Skin was closed. Dermabond was placed. The needle and sponge counts were reported as correct. The patient was taken to ICU in stable condition. TRANSINT:[id number] Voice Confirmation ID: [id number] DOCUMENT ID: [id number] VICENTE PAREDES MD at 0833 CC: ZENAIDA SANDOVAL PARCHMAN, ANNA J MD and PITO MILLS [id number] DICTATION DATE: 10/14/19 1500 CORE INSERTER: 10/15/19 0030 ADM IN [place] [address] [place] [address]
[2019-10-15 09:14] LABS: ANION GAP 16.6 mmol/L (8-16); CALCIUM 8.5 mg/dL (8.5-10.1); CARBON DIOXIDE 23.1 mmol/L (21.0-32.0); CREATININE - SERUM 5.5 mg/dL (0.6-1.3); POTASSIUM - SERUM 4.7 mmol/L (3.5-5.1)
--- NOTE | 2019-10-15 10:53 | NUR ---
EPISODE OF NAUSEA AND VOMITING AT THIS TIME. HOB ELEVATED TO 45 DEGREES. ORAL SUCTION PROVIDED. ZOFRAN GIVEN PER ORDERS.
--- NOTE | 2019-10-15 11:07 | NUR ---
DR. LOOMIS NOTIFIED OF CONSULT AT THIS TIME.
--- NOTE | 2019-10-15 12:38 | NUR ---
RESTING COMFORTABLY. PT'S MOTHER AT BEDSIDE. WILL CONTINUE TO MONITOR CLOSELY.
--- NOTE | 2019-10-15 13:27 | NUR ---
DR. SANDOVAL AT BEDSIDE. NOTIFIED OF DECREASED URINE OUTPUT IN LAST 3HRS.
--- NOTE | 2019-10-15 13:34 | NUR ---
DR. LOOMIS AT BEDSIDE. VENT SETTINGS CHANGED TO AC, R-16, TV 550, FIO 60%, PEEP 8.
--- NOTE | 2019-10-15 15:00 | NUR ---
took over patient monitoring and oberservation at this time, pt on vent support will open eyes, and follow commands. pt shakes head no when asks if he is hurting or needs anything. will monitor for changes in condition
--- NOTE | 2019-10-15 17:00 | NUR ---
pt reamins on vent support, pt awakes to name and follows commands. monitoring vital signs, vital signs remain stable on current rate of nitroglycerin
--- NOTE | 2019-10-15 18:49 | NUR ---
DR. PAREDES AWARE OF LOW URINE OUTPUT. DC'D PLASMOLYTE AT THIS TIME. HR 101. ORDERED 2.5MG IV LOPRESSOR X 1.
--- NOTE | 2019-10-15 19:00 | NUR ---
REPORT RECEIVED. PT SEDATED ON VENT, SOFT WRIST RESTRAINTS IN PLACE. LT RADIAL A-LINE IN PLACE, ASSESSMENT COMPLETED, SEE FLOWSHEET. RT IJ CVL INFUSING, SEE IV FLOWSHEET.
--- NOTE | 2019-10-15 20:05 | NUR ---
RENAL PAGED REGARDING URINE OUTPUT. AWAITING CALL BACK.
--- NOTE | 2019-10-15 20:41 | NUR ---
RENAL PAGED A SECOND TIME REGARDING URINE OUTPUT. DR GAFFNEY SPOKEN WITH, UPDATED ON STATUS, NEW ORDERS RECEIVED.
[2019-10-16] VITALS (79 sets, daily range): BP systolic 96–146; BP diastolic 45–79
[2019-10-16 05:23] LABS: BASOPHILS 0.1 % (0-2); EOSINOPHILS 0.1 % (0-7); HEMATOCRIT 29.3 % (42.0-54.0); HEMOGLOBIN 9.6 g/dL (13.5-17.5); IMMATURE GRANULOCYTES 0.4 % (0-5); LYMPHOCYTES 12.6 % (15-50); MCH 30.9 pg (26.0-34.0); MCHC 32.8 g/dL (31.0-37.0); MCV 94.2 fL (80.0-100.0); MEAN PLATELET VOLUME 9.9 fL (7.4-10.4); MONOCYTES 10.8 % (2-11); PLATELET COUNT 226 10x3/uL (130-400); RBC 3.11 10x6/uL (4.20-6.10); RDW 15.3 % (11.5-14.5); WBC 16.6 10x3/uL (4.8-10.8)
[2019-10-16 05:58] LABS: ANION GAP 18.5 mmol/L (8-16); BILIRUBIN - TOTAL 0.34 mg/dL (0.2-1.3); CALCIUM 8.4 mg/dL (8.5-10.1); CARBON DIOXIDE 22.7 mmol/L (21.0-32.0); CREATININE - SERUM 6.8 mg/dL (0.6-1.3); MAGNESIUM - SERUM 2.4 mg/dL (1.8-2.4); POTASSIUM - SERUM 5.2 mmol/L (3.5-5.1); PROTEIN - SERUM 6.5 g/dL (6.4-8.2)
[2019-10-16 06:05] LABS: PHOSPHOROUS 6.7 mg/dL (2.5-4.9)
--- NOTE | 2019-10-16 14:26 | NUR ---
Nutrition Consult/Follow-up: Received consult to start TF. POD 2 CABG. Remains intubated/sedated. Diprivan @ 20.8 mL/hr (provides 549 kcal daily). Diet: NPO Wt: 231.4# (10/15) Labs noted: K+ 5.2, Glu 125, Ca 8.4, PO4 6.7, Alb 3.0 Meds noted: Diprivan, Senokot, Colace, Protonix, Zofran -Start Nepro @ 15 mL/hr and increase by 10 mL/hr q 6 hrs as tolerated to goal rate of 40 mL/hr + H2O flushes 25 mL q hr or per MD. If HD started, may increase goal rate. -Monitor wt. -RD following.
[2019-10-17] VITALS (101 sets, daily range): BP systolic 99–156; BP diastolic 54–93
[2019-10-17 05:07] LABS: BASOPHILS 0 % (0-2); EOSINOPHILS 0.3 % (0-7); HEMATOCRIT 29.5 % (42.0-54.0); HEMOGLOBIN 9.6 g/dL (13.5-17.5); IMMATURE GRANULOCYTES 0.6 % (0-5); LYMPHOCYTES 13.7 % (15-50); MCH 30.8 pg (26.0-34.0); MCHC 32.5 g/dL (31.0-37.0); MCV 94.6 fL (80.0-100.0); MEAN PLATELET VOLUME 10.5 fL (7.4-10.4); MONOCYTES 7.9 % (2-11); NEUTROPHILS 77.5 % (40-80); PLATELET COUNT 208 10x3/uL (130-400); RBC 3.12 10x6/uL (4.20-6.10); RDW 14.8 % (11.5-14.5); WBC 14.3 10x3/uL (4.8-10.8)
[2019-10-17 05:33] LABS: ALBUMIN 2.8 g/dL (3.4-5.0); ANION GAP 17.5 mmol/L (8-16); BILIRUBIN - TOTAL 0.61 mg/dL (0.2-1.3); CALCIUM 8.6 mg/dL (8.5-10.1); CARBON DIOXIDE 21.9 mmol/L (21.0-32.0); CREATININE - SERUM 7.3 mg/dL (0.6-1.3); MAGNESIUM - SERUM 2.6 mg/dL (1.8-2.4); PROTEIN - SERUM 6.5 g/dL (6.4-8.2)
[2019-10-17 05:43] LABS: POTASSIUM - SERUM 4.4 mmol/L (3.5-5.1)
--- NOTE | 2019-10-17 07:05 | NUR ---
Shift report received. Pt intubated and sedated. responds to touch and voice. ETT size 8.0 23cm at lip midline. A/C, R-16, TV 600, FIO2 60%, PEEP 7. RIJ with propofol at 35mcg/kg/min and nitroglycerin at 4mcg/min. Midsternal incision c/d/i. Subternal CT x 2 to 20cm suction, no air leak noted. Ramirez drain in place. Left radial elton secured with wrist protector. OGT in place with nepro at 15cc/hr. Right forearm reserve, right forearm fistula c/d/i. RLE harvest sites BALANCER SCALE. SCD and EVER hose to LLE. Ang catheter in place with clear yellow urine noted. Wrist restraints in place per order. Safety measures in place. Will continue to monitor closely.
--- NOTE | 2019-10-17 07:53 | NUR ---
Residual 10cc at this time. Nepro increased to 25cc/hr per order. Fio2 is down to 50% and peep is at 5. Will continue to monitor closely.
--- NOTE | 2019-10-17 08:40 | NUR ---
WEANING SEDATION. FIO2 40%, PEEP 5. WILL CONTINUE TO WEAN SEDATION TOLERATED.
--- NOTE | 2019-10-17 10:17 | NUR ---
Call received from pt's sister. Passcode verified. Update given. Pt's mother will be by to see him at noon.
--- NOTE | 2019-10-17 11:39 | NUR ---
EXTUBATED AT [address] LOOMIS'S ORDER. PLACED ON BIPAP 14/8 FIO2 40%. RESTRAINTS DISCONTINUED. RESTING COMFORTABLY. WILL CONTINUE TO MONITOR.
--- NOTE | 2019-10-17 12:30 | NUR ---
PT'S MOTHER AT BEDSIDE. PT RESTING COMFORTABLY. CONTINUES ON BIPAP AT 40% FIO2. WILL CONTINUE TO MONITOR.
--- NOTE | 2019-10-17 13:00 | NUR ---
RECEIVED PATIENT MIDSHIFT. VISITOR AT BEDSIDE. PATIENT IS ALERT AND RESPONSIVE. DENIES PAIN. POINTS TO BIPAP MASK AND MOUTHS "WANT OFF". TEACHING ON NEED FOR BIPAP DUE TO LOW OXYGEN LEVELS. NODDED HEAD.
--- NOTE | 2019-10-17 14:25 | TEE ---
PATIENT:SARAH LAGOS MEDICAL RECORD: [id number] LOCATION:[place] [address] AGE OF PATIENT: 59 ADMISSION DATE: 10/14/19 SEX: M REFERRING PHYSICIAN: INTERPRETING PHYSICIAN: PITO MILLS MD TRANSESOPHAGEAL ECHOCARDIOGRAM Date: 10/14/19 GIANNA CHARGE Y INDICATIONS: CABG PREMEDICATIONS: PATIENT'S RESPONSE PROCEDURE DOPPLER MEASUREMENTS: LVIT LA PA RA LVOT RVOT Asc. Ao AV Gradient Peak AV Mean AV Area MV Gradient Peak MV Mean MV Area INTERPRETATION: Doppler: 2-D: COLOR FLOW DOPPLER NORMAL SALINE STUDY: MISCELLANOUS: DIAGNOSIS: PLAN: Repair Clerk:3 Dr. Sigala Escape Wheel Tooth Cutter: Dyllan ROLON COMMENTS: DATE OF SERVICE: Preop shows normal LV internal dimensions, wall motion and thickening, EF 55%. Aortic valve is tricuspid with good valve excursion. Left atrium appears normal. Mitral valve appears normal. Trivial MR. Postoperatively, LV internal dimensions appear normal as is wall motion, EF greater than 55%. The aortic valve is tricuspid with good valve excursion. Left atrium appears normal. Mitral valve appears normal. Trivial MR. TRANSESOPHAGEAL ECHOCARDIOGRAM REPORT [id number] SARAH LAGOS TRANSINT:[id number] Voice Confirmation ID: [id number] DOCUMENT ID: [id number] at 1425 CC: [id number] DICTATION DATE: 10/15/19 1322 [facility]: 10/16/19 0246 ADM IN [facility] [address] [place] [address]
--- NOTE | 2019-10-17 18:00 | NUR ---
ASSISTED WITH ORAL CARE. C/O OF DRY LIPS. CLEVIPREX AND NITRO CONTINUE.
--- NOTE | 2019-10-17 18:40 | NUR ---
ADDITIONAL 2.5MG LOPRESSOR IV GIVEN PER ORDER.
[2019-10-18] VITALS (82 sets, daily range): BP systolic 110–156; BP diastolic 49–98
[2019-10-18 06:27] LABS: BASOPHILS 0.1 % (0-2); EOSINOPHILS 0.6 % (0-7); HEMATOCRIT 29.4 % (42.0-54.0); HEMOGLOBIN 9.7 g/dL (13.5-17.5); IMMATURE GRANULOCYTES 0.7 % (0-5); LYMPHOCYTES 15.8 % (15-50); MCH 30.9 pg (26.0-34.0); MCV 93.6 fL (80.0-100.0); MEAN PLATELET VOLUME 10.4 fL (7.4-10.4); MONOCYTES 7.6 % (2-11); NEUTROPHILS 75.2 % (40-80); RBC 3.14 10x6/uL (4.20-6.10); RDW 14.3 % (11.5-14.5); WBC 13.1 10x3/uL (4.8-10.8)
[2019-10-18 06:28] LABS: PLATELET COUNT 259 10x3/uL (130-400)
[2019-10-18 06:45] LABS: ALBUMIN 2.7 g/dL (3.4-5.0); ANION GAP 18.5 mmol/L (8-16); BILIRUBIN - TOTAL 0.92 mg/dL (0.2-1.3); CALCIUM 8.4 mg/dL (8.5-10.1); CARBON DIOXIDE 22.7 mmol/L (21.0-32.0); CREATININE - SERUM 7.1 mg/dL (0.6-1.3); MAGNESIUM - SERUM 2.7 mg/dL (1.8-2.4); POTASSIUM - SERUM 4.2 mmol/L (3.5-5.1); PROTEIN - SERUM 6.6 g/dL (6.4-8.2)
--- NOTE | 2019-10-18 12:23 | NUR ---
Nutrition Follow-up: POD 4 CABG. Extubated yesterday. Advanced to renal diet this AM. Nursing reports pt tolerated breakfast. Diet: Renal Wt: 225# (10/17) Labs noted: K+ 4.2, Glu 119, Ca 8.4, PO4 6.0, Mg 2.7, Alb 2.7 Meds noted: Senokot, Colace, Protonix -Encourage PO intake and honor food preferences within diet restrictions. -Monitor wt. -RD following.
--- NOTE | 2019-10-18 14:15 | NUR ---
DR PAREDES HERE INSTRUCT TO GIVE 2MG MORPHINE IV NOW AND DONE. CHEST TUBES DCD PER DR PAREDES.
--- NOTE | 2019-10-18 14:32 | NUR ---
OT NOTE: ATTEMPTED EVAL IN EARLY AFTERNOON. PT WAS UP IN CHAIR BUT ABOUT TO HAVE TUBES PULLED. ATTEMPTED AGAIN WHILE NURSE WAS IN PROCESS OF REMOVING TUBES.. SUGGESTED TO WAIT A BIT HE HAD JUST RETURNED TO BED AND SHE WANTED TO MAKE SURE HE WAS DOING OK PRIOR TO STARTING THERAPY. WILL PERFORM EVAL TOMMOROW. SUNDAR HEBERT, OTR/L
--- NOTE | 2019-10-18 19:10 | NUR ---
BEDSIDE SHIFT REPORT DONE. PT IS SITTING UP IN BED A&OX4 WATCHING TV. HE VOICES"O IM DOING GOOD, CANT COMPLAINT". NO C/O OF PAIN OR NEEDS. VSS. ART LINE ZEROED WITH GOOD WAVE FORM, ALL VSS. HE IS ON CLEVIPREX DRIP AT 4MG/HR AND NITROGLYCERIN DRIP AT 3ML/HR. RIGHT IJ IS CDI. L LOYDA DRAIN COMPRESSED CDI. PACER WIRES ARE SECURED UNDER DRESSING. EVER/SCD'S ARE ON BILAT. FULL ASSESSMENT WILL BE DONE AND DOC IN FLOWSHEET. EDUCATED ABOUT USE OF IS C VERBALIZED UNDERSTANDING. BED IS LOW,SIDE RAILSX2,CALL LIGHT WITHIN REACH. WILL CONINTUE TO MONITOR
--- NOTE | 2019-10-18 21:11 | NUR ---
PT IS RESTING IN BED A&OX4. VSS. JUST SCANNED AND ADMINISTERED PO SCHEDULED MEDS. PT VOICES "NO" TO PAIN OR NEEDS AT THIS TIME. PROVIDED WITH FRESH ICE WATER. HE POSITIONED SELF INDEPENDENTLY. FLUSEHD RIGHT IJ C NS 10ML AT THIS TIME. BED IS LEFT LOW,SIDE RIALSX2,CALL LIGHT WITHIN REACH. WILL CONTINUE TO MONITOR J
[2019-10-19] VITALS (86 sets, daily range): BP systolic 103–164; BP diastolic 63–94
--- NOTE | 2019-10-19 03:17 | NUR ---
pt is resting in bed. VSS. RE-ASSESSMENT PERFORMED AND WILL DOC IN FLOWSHEET. RIGHT IJ CENTRAL DRESSING CHANGE DONE AT THIS TIME. MAINTAINED STERIL TECHNIQUE. PT VOICED NO C/O OF PAIN. HE REQUESTED CUP OF ICE WATER TO WHICH I PROVIDED. NO OTHER NEEDS VOICED. BED IS LEFT LOW,SIDE RAILSX2,CALL LIGHT WITHIN REACH. WILL CONTINUE TO MONITOR
[2019-10-19 06:27] LABS: BASOPHILS 0 % (0-2); EOSINOPHILS 2.5 % (0-7); HEMATOCRIT 33.2 % (42.0-54.0); LYMPHOCYTES 21.5 % (15-50); MCH 30.6 pg (26.0-34.0); MCHC 33.1 g/dL (31.0-37.0); MCV 92.5 fL (80.0-100.0); MONOCYTES 9.9 % (2-11); NEUTROPHILS 65.1 % (40-80); PLATELET COUNT 182 10x3/uL (130-400); RBC 3.59 10x6/uL (4.20-6.10); RDW 13.8 % (11.5-14.5); WBC 7.9 10x3/uL (4.8-10.8)
--- NOTE | 2019-10-19 06:30 | NUR ---
ASSISTED PT UP TO CHAIR FOR BREAKFAST WITH MODERATE ASSISTANCE. HE VOICED NO C/O OF PAIN. VSS. CHAIR WHEELS ARE LOCKED, BEDSIDE TABLE BY SIDE, AND CALL LIGHT WITHIN REACH. WILL CONINTUE TO MONITOR
[2019-10-19 06:45] LABS: BILIRUBIN - TOTAL 0.68 mg/dL (0.2-1.3); CARBON DIOXIDE 17.3 mmol/L (21.0-32.0); CREATININE - SERUM 5.4 mg/dL (0.6-1.3); MAGNESIUM - SERUM 2.2 mg/dL (1.8-2.4); PHOSPHOROUS 5.3 mg/dL (2.5-4.9)
[2019-10-19 06:47] LABS: ANION GAP 16.8 mmol/L (8-16); POTASSIUM - SERUM 3.1 mmol/L (3.5-5.1)
[2019-10-19 06:48] LABS: ALBUMIN 1.8 g/dL (3.4-5.0); CALCIUM 6.4 mg/dL (8.5-10.1); PROTEIN - SERUM 4.9 g/dL (6.4-8.2)
--- NOTE | 2019-10-19 08:00 | NUR ---
TO X-RAY FOR PA AND LATERAL CHEST X-RAY PER WHEEL CHAIR.
--- NOTE | 2019-10-19 08:30 | NUR ---
RIJ CENTRAL LINE INFUSING WITH NTG GTT AT 3 MCG/MIN. CLEVEPREX AT 1 MG/HOUR. DIAS CATH PATENT. DRAINING CLEAR TERRANCE URINE. MONITOR SR. BREAKFAST SERVED.
--- NOTE | 2019-10-19 09:30 | NUR ---
AMBULATED IN JARVIS PER PHYSICAL THERAPY. TOLERATED FAIR. OXYGEN AT 7LITERS PER HIGH FLOW
--- NOTE | 2019-10-19 12:30 | NUR ---
DELISA DC'D PRESSURE HELD X 5 MIN. NO BRUISING OR BLEEDING NOTED. PRESSURE DRESSING APPLIED.PATIENT TOLERATED WELL. IV LEFT HAND DC'D.
--- NOTE | 2019-10-19 13:19 | NUR ---
PER DR. REGGIE FERNANDEZ.NTG GTT UP TO 10 MCG/MIN.
--- NOTE | 2019-10-19 13:26 | NUR ---
PRN APRESOLINE STARTED TO WEAN NTG GTT
[2019-10-20] VITALS (50 sets, daily range): BP systolic 112–159; BP diastolic 74–101
[2019-10-20 05:35] LABS: HEMOGLOBIN 8.8 g/dL (13.5-17.5); MCH 30.2 pg (26.0-34.0); MCHC 32.6 g/dL (31.0-37.0); MCV 92.8 fL (80.0-100.0); MEAN PLATELET VOLUME 9.8 fL (7.4-10.4); RBC 2.91 10x6/uL (4.20-6.10); RDW 13.6 % (11.5-14.5); WBC 8.7 10x3/uL (4.8-10.8)
[2019-10-20 06:01] LABS: BILIRUBIN - TOTAL 1.41 mg/dL (0.2-1.3); CREATININE - SERUM 6.2 mg/dL (0.6-1.3)
[2019-10-20 06:13] LABS: ALBUMIN 2.5 g/dL (3.4-5.0); ANION GAP 17.3 mmol/L (8-16); CALCIUM 8.2 mg/dL (8.5-10.1); CARBON DIOXIDE 22.2 mmol/L (21.0-32.0); POTASSIUM - SERUM 4.5 mmol/L (3.5-5.1); PROTEIN - SERUM 6.4 g/dL (6.4-8.2)
--- NOTE | 2019-10-20 08:18 | NUR ---
DR SANDOVAL NOTIFIED OF BUN AND CREATNINE ELEVATING TODAY. NS 50CC/HR STARTED ORDERED.
--- NOTE | 2019-10-20 15:25 | NUR ---
Woody CHAPMAN DCD ORDERED PER DR PAREDES.
--- NOTE | 2019-10-20 18:45 | NUR ---
BP 142/86, APPRESOLINE PRN GIVEN.
--- NOTE | 2019-10-20 19:00 | NUR ---
REPORT RECEIVED. CARE ASSUMED. RECEIVED IN BED AWAKE ALERT AND ORIENTED X 4. DENIES PAIN. ASSESSMENT COMPLETED PER FLOW SHEET WITH NO ACUTE DISTRESS OBSERVED. MONITORS CONNECTED TO PATIENT WITH ALARMS SET. VSS. CALL LIGHT IN REACH AND ABLE TO UTILIZE TO MAKE NEEDS KNOWN.
[2019-10-21] VITALS (24 sets, daily range): BP systolic 124–148; BP diastolic 76–97
[2019-10-21 04:50] LABS: HEMATOCRIT 28.7 % (42.0-54.0); HEMOGLOBIN 9.4 g/dL (13.5-17.5); MCH 30.4 pg (26.0-34.0); MCHC 32.8 g/dL (31.0-37.0); MCV 92.9 fL (80.0-100.0); RBC 3.09 10x6/uL (4.20-6.10); RDW 13.8 % (11.5-14.5); WBC 9.9 10x3/uL (4.8-10.8)
[2019-10-21 05:23] LABS: ALBUMIN 2.5 g/dL (3.4-5.0); BILIRUBIN - TOTAL 1.7 mg/dL (0.2-1.3); CALCIUM 8.2 mg/dL (8.5-10.1); CARBON DIOXIDE 20.7 mmol/L (21.0-32.0); CREATININE - SERUM 5.5 mg/dL (0.6-1.3); POTASSIUM - SERUM 4.7 mmol/L (3.5-5.1); PROTEIN - SERUM 6.6 g/dL (6.4-8.2)
--- NOTE | 2019-10-21 07:00 | NUR ---
PT REPORT RECEIVED FROM DIESEL MECHANIC NURSE. NO ACUTE SIGNS OF DISTRESS NOTED. SHIFT ASSESSMENT COMPLETED. WILL CONTINUE TO MONITOR. PT UP IN BEDSIDE CHAIR.
--- NOTE | 2019-10-21 08:40 | NUR ---
DR SANDOVAL IN ROOM. UPDATE GIVEN. WILL CONTINEU TO MONITOR
--- NOTE | 2019-10-21 09:53 | NUR ---
PT SITTING IN BEDSIDE CHAIR. NO COMPLAINTS NOTED AT THIS TIME. WILL CONTINUE TO MONITOR
--- NOTE | 2019-10-21 10:53 | NUR ---
REASSESSMENT COMPLETED. PT SITTING IN BEDSIDE CHAIR WATCHING TV. NO COMPLAINTS NOTED AT THIS TIME. WILL CONTINUE TO MONITOR
--- NOTE | 2019-10-21 11:37 | NUR ---
Nutrition Follow-up: POD 7 CABG. Tolerating PO intake. -BM; +flatus. Diet: Renal PO intake: 50-80% yesterday Wt: 224.8# (10/20) Labs noted: K+ 4.7, Ca 8.2, Alb 2.5, PO4 5.3 (10/18) Meds noted: Protonix, Prednisone, Senokot, Colace, Zofran -Encourage PO intake and honor food preferences within diet restrictions. -Monitor wt. -RD following.
--- NOTE | 2019-10-21 12:36 | NUR ---
OT NOTE: PT DOING WELL. REPORTS THAT HE HAS BEEN TAKING HIMSELF TO THE BATHROOM MULTIPLE TIMES THROUGHOUT THE NIGHT. AMB IN ROOM WITHOUT WALKER WITH STEADY GAIT..NO BALANCE DEFECITS NOTED DURING IN ROOM AMB. ABLE TO PERFORM TOILETING AND UE DRESSING WITHOUT ASSIST. REQUIRES ASSIST WITH DONNING SOCKS BUT REPORTS THAT HE WILL HAVE HELP AT HOME FOR A WHILE. ENDURANCE IMPROVING. AMBULATING THROUGHOUT JARVIS WITH P.T. WITHOUT AD..NO SOB DURING AMB, HOWEVER, WHEN PT RETURNED TO ROOM, HE WAS FATIGUED. SUNDAR HEBERT, OTR/L [phone]
--- NOTE | 2019-10-21 13:00 | NUR ---
PT RESTING IN BED. NO COMPLAINTS NOTED AT THIS TIME. VSS. WILL CONTINUE TO MONITOR
--- NOTE | 2019-10-21 15:00 | NUR ---
PT RESTING IN BED. REASSESSMENT COMPLETED. NO SIGNS OF DISTRESS NOTED. WILL CONTINUE TO MONITOR
--- NOTE | 2019-10-21 17:05 | NUR ---
PT UP TO BATHROOM. TOLERATED WELL. BACK IN BED AND HOOKED UP TO MONITOR. WILL CONTINEU TO MONITOR
--- NOTE | 2019-10-21 19:00 | NUR ---
REPORT RECEIVED. PT RESTING IN BED, NO ACUTE DISTRESS NOTED. ASSESSMENT COMPLETED, SEE FLOWSHEET. WILL CONTINUE TO MONITOR.
--- NOTE | 2019-10-21 22:00 | NUR ---
ASSISTED TO BATHROOM, NO ACUTE DISTRESS NOTED.
[2019-10-22] VITALS (14 sets, daily range): BP systolic 102–143; BP diastolic 61–96
[2019-10-22 04:21] LABS: HEMATOCRIT 29.4 % (42.0-54.0); HEMOGLOBIN 9.8 g/dL (13.5-17.5); MCH 30.4 pg (26.0-34.0); MCHC 33.3 g/dL (31.0-37.0); MCV 91.3 fL (80.0-100.0); MEAN PLATELET VOLUME 9.6 fL (7.4-10.4); RBC 3.22 10x6/uL (4.20-6.10); RDW 13.7 % (11.5-14.5); WBC 11.2 10x3/uL (4.8-10.8)
[2019-10-22 04:38] LABS: ALBUMIN 2.6 g/dL (3.4-5.0); ANION GAP 17.2 mmol/L (8-16); BILIRUBIN - TOTAL 2.65 mg/dL (0.2-1.3); CALCIUM 8.3 mg/dL (8.5-10.1); CARBON DIOXIDE 20.3 mmol/L (21.0-32.0); CREATININE - SERUM 5.2 mg/dL (0.6-1.3); POTASSIUM - SERUM 4.5 mmol/L (3.5-5.1); PROTEIN - SERUM 6.8 g/dL (6.4-8.2)
--- NOTE | 2019-10-22 07:00 | NUR ---
PT REPORT RECEIVED FROM CLOTH BIN PACKER NURSE. PT FOUND TO BE SITTING IN BEDSIDE CHAIR WATCHING TV. NO COMPLAINTS NOTED AT THIS TIME. SHIFT ASSESSMENT PERFORMED. RT IN ROOM PROVIDING BREATHING TX. WILL CONTINUE TO MONITOR
--- NOTE | 2019-10-22 09:54 | NUR ---
PT SITTING IN BEDSIDE CHAIR. NO COMPLAINTS NOTED AT THIS TIME. WILL CONTINUE TO MONITOR
--- NOTE | 2019-10-22 10:41 | NUR ---
OT NOTE: (DOS 10/21/19) PT COMPLETED SUPINE TO SIT WITH CGA. PT COMPLETED ADL MOB WITH SBA. PT COMPLETED UE AROM WITH FUNCTIONAL TASKS. 115-139 THANK YOU,LAURIE OSEGUERA
--- NOTE | 2019-10-22 15:15 | NUR ---
DR CASPER AT BEDSIDE. UPDATE GIVEN. DISCHARGE TODAY
[2019-10-22] MEDS ORDERED: AMIODARONE HCL200 MG PO (15:51)
[2019-10-22] MEDS ORDERED: NORVASC10 MG PO (15:52)
[2019-10-22] MEDS ORDERED: METOPROLOL TART50 MG PO (15:54)
[2019-10-22] MEDS ORDERED: LOW DOSE ASPIRI81 M1 PO (15:55)
[2019-10-22] MEDS ORDERED: PERCOCET 5-3251 TAB PO (15:58)
[2019-10-22] MEDS ORDERED: PACERONE200 MG PO (16:22)
--- NOTE | 2019-10-22 17:21 | NUR ---
PT WHEELED OUT OF UNIT IN WHEELCHAIR. MOTHER AND NURSING STAFF WITH PT. TAKEN TO PERSONAL VEHICLE TO GO HOME
--- NOTE | 2019-10-22 20:14 | MORECARE ---
CASE MANAGEMENT DISCHARGE SUMMARY PATIENT: SARAH LAGOS UNIT: [id number] ADM DATE: 10/14/19 AGE: 59 : [birth year] SEX: M ROOM/BED: [facility] AUTHOR: ADAMA DURON PHYSICIAN: REFERRING PHYSICIAN: DARNELL PAREDES MD DATE OF SERVICE: 10/22/19 Discharge Plan Patient Name: SARAH LAGOS [place] [facility] : 1960 Planned Disposition: Home Anticipated Discharge Date: Discharge Date: 10/22/2019 Expected LOS: Initial Reviewer: [email or web address] Initial Review Date: 10/14/2019 Generated: 10/22/19 9:13 pm Patient Name: SARAH LAGOS Page [id number] at 2014 All edits/amendments must be made on the electronic document DICTATION DATE: 10/22/192012 TYPE COPY EXAMINER: MARITZA 10/22/192012 RPT#: [id number] DC DATE:10/22/19 STATUS: DIS IN [facility] [address] [place] [address] END OF REPORT
--- NOTE | 2019-10-22 20:20 | MORECARE ---
CASE MANAGEMENT DISCHARGE SUMMARY PATIENT: SARAH LAGOS UNIT: [id number] ADM DATE: 10/14/19 AGE: 59 : 64 SEX: M ROOM/BED: [facility] AUTHOR: DOMI,DOC PHYSICIAN: REFERRING PHYSICIAN: DARNELL PAREDES MD DATE OF SERVICE: 10/22/19 Discharge Plan Patient Name: SARAH LAGOS Facility: [facility]:[place] : 1960 Planned Disposition: Home Anticipated Discharge Date: Discharge Date: 10/22/2019 Expected LOS: Initial Reviewer: [email or web address] Initial Review Date: 10/14/2019 Generated: 10/22/19 9:20 pm Comments DCP- Discharge Planning Updated by [email or web address]: Heidi Sanchez on 10/22/19 7:[address] Patient Name: SARAH LAGOS Admission Status: Elective Accout number: [id number] Admission Date: 10-14-2019 : 1960 Admission Diagnosis:ATHSCL HEART DISEASE OF [place] CORONARY ARTERY W/O ANG Attending: DARNELL PAREDES Current LOS: 8 Anticipated DC Date: Planned Disposition: Home Primary Insurance: [facility] PPO Discharge Planning Comments: CM met with patient to complete initial dc planning assessment. CM educated patient on the CM role and verbal consent given by patient to complete assessment. Patient lives at home alone. Patient is independent. At discharge patient plans to return home and feels this is a safe discharge. CM discussed availability of home health, rehab services, and medical equipment. Patient will have family to transport home. Patient denied known discharge needs at this time. CM will continue to follow and will assist as needed with dc plans/needs. Patient states that he will have family stay with him for the next month or so. Sizing Machine Tender: Heidi Sanchez DCPIA - Discharge Planning Initial Assessment Updated by [email or web address]: Heidi Sanchez on 10/22/19 8:15 pm * Is the patient Alert and Oriented? Yes * How many steps to enter\exit or inside your home? * PCP SANDY * Pharmacy [facility] * Preadmission Environment Home Alone * ADLs Independent * Other Equipment WALKER, CANE, B/P CUFF * List name and contact numbers for known caregivers / representatives who currently or will assist patient after discharge: MARY LAGOS - MOTHER- [phone], * Verbal permission to speak to the caregivers and representatives has been obtained from the patient. N/A * Community resources currently utilized None * Additional services required to return to the preadmission environment? No * Can the patient safely return to the preadmission environment? Yes * Has this patient been hospitalized within the prior 30 days at any hospital? No Last DP export: 10/22/19 7:14 p Patient Name: SARAH LAGOS Page [id number] at 2020 All edits/amendments must be made on the electronic document DICTATION DATE: 10/22/192019 PLASTICS SUPERVISOR: MARITZA 10/22/192019 RPT#: [id number] DC DATE:10/22/19 STATUS: DIS IN [facility] [address] [place] [address] END OF REPORT
--- NOTE | 2019-10-22 20:48 | MORECARE ---
CASE MANAGEMENT DISCHARGE SUMMARY PATIENT: SARAH LAGOS UNIT: [id number] ADM DATE: 10/14/19 AGE: 59 : 64 SEX: M [facility] AUTHOR: DOMI,DOC PHYSICIAN: REFERRING PHYSICIAN: DARNELL PAREDES MD DATE OF SERVICE: 10/22/19 Discharge Plan Patient Name: SARAH LAGOS Facility: [facility]:[place] : 1960 Planned Disposition: Home Anticipated Discharge Date: Discharge Date: 10/22/2019 Expected LOS: Initial Reviewer: [email or web address] Initial Review Date: 10/14/2019 Generated: 10/22/19 9:47 pm Comments DCP- Discharge Planning Updated by [email or web address]: Heidi Sanchez on 10/22/19 7:[address] Patient Name: SARAH LAGOS Admission Status: Elective Accout number: [id number] Admission Date: 10-14-2019 : 1960 Admission Diagnosis:ATHSCL HEART DISEASE OF [place] CORONARY ARTERY W/O ANG Attending: DARNELL PAREDES Current LOS: 8 Anticipated DC Date: Planned Disposition: Home Primary Insurance: [facility] PPO Discharge Planning Comments: CM met with patient to complete initial dc planning assessment. CM educated patient on the CM role and verbal consent given by patient to complete assessment. Patient lives at home alone. Patient is independent. At discharge patient plans to return home and feels this is a safe discharge. CM discussed availability of home health, rehab services, and medical equipment. Patient will have family to transport home. Patient denied known discharge needs at this time. CM will continue to follow and will assist as needed with dc plans/needs. Patient states that he will have family stay with him for the next month or so. Freelance Recruiter: Heidi Sanchez DCPIA - Discharge Planning Initial Assessment Updated by [email or web address]: Heidi Sanchez on 10/22/19 8:15 pm * Is the patient Alert and Oriented? Yes * How many steps to enter\exit or inside your home? * PCP SANDY * Pharmacy RX [facility] * Preadmission Environment Home Alone * ADLs Independent * Other Equipment WALKER, CANE, B/P CUFF * List name and contact numbers for known caregivers / representatives who currently or will assist patient after discharge: MARY LAGOS - MOTHER- [phone], * Verbal permission to speak to the caregivers and representatives has been obtained from the patient. N/A * Community resources currently utilized None * Additional services required to return to the preadmission environment? No * Can the patient safely return to the preadmission environment? Yes * Has this patient been hospitalized within the prior 30 days at any hospital? No Last DP export: 10/22/19 7:20 p Patient Name: SARAH LAGSO Page 99957 at 2048 All edits/amendments must be made on the electronic document DICTATION DATE: 10/22/192046 MEDICAL SCRIBE: MARITZA 10/22/192046 RPT#: [id number] DC DATE:10/22/19 STATUS: DIS IN [facility] [address] [place] [address] END OF REPORT
== END 2019-10-22 17:22 | disposition home or self-care (01) | DRG 235 ==
LOC: D.SDCHOLD 10-14 05:20 → D.CVICU 10-14 05:20 → D.SDCHOLD 10-14 07:30 → D.CVICU 10-14 13:36
PROVIDERS: Internal Medicine Nephrology; ADMIT Thoracic Surgery (Cardiothoracic Vascular Surgery); ATTEND Thoracic Surgery (Cardiothoracic Vascular Surgery)
PROC: 021209W Bypass Coronary Artery, Three Arteries from Aorta with Autologous Venous Tissue, Open Approach (ICD-10-PCS; 2019-10-14)
PROC: 06BP4ZZ Excision of Right Saphenous Vein, Percutaneous Endoscopic Approach (ICD-10-PCS; 2019-10-14)
PROC: 5A1221Z Performance of Cardiac Output, Continuous (ICD-10-PCS; 2019-10-14)
PROC: B24BZZ4 Ultrasonography of Heart with Aorta, Transesophageal (ICD-10-PCS; 2019-10-14)
PROC: 0HB5XZZ Excision of Chest Skin, External Approach (ICD-10-PCS; 2019-10-14)
PROC: 5A1945Z Respiratory Ventilation, 24-96 Consecutive Hours (ICD-10-PCS; 2019-10-14)
PROC: 0BH17EZ Insertion of Endotracheal Airway into Trachea, Via Natural or Artificial Opening (ICD-10-PCS; 2019-10-14)
PROC: 02100Z9 Bypass Coronary Artery, One Artery from Left Internal Mammary, Open Approach (ICD-10-PCS; principal; 2019-10-14 07:30)
DX: I25.119 Atherosclerotic heart disease of native coronary artery with unspecified angina pectoris (principal); J96.00 Acute respiratory failure, unspecified whether with hypoxia or hypercapnia; N17.9 Acute kidney failure, unspecified; Z94.0 Kidney transplant status; E03.9 Hypothyroidism, unspecified; K21.9 Gastro-esophageal reflux disease without esophagitis; N40.0 Benign prostatic hyperplasia without lower urinary tract symptoms; I12.9 Hypertensive chronic kidney disease with stage 1 through stage 4 chronic kidney disease, or unspecified chronic kidney disease; N18.9 Chronic kidney disease, unspecified; E78.5 Hyperlipidemia, unspecified; E87.5 Hyperkalemia; D72.829 Elevated white blood cell count, unspecified; D64.9 Anemia, unspecified

== ENCOUNTER → 2019-11-13 10:22 | Outpatient (CLI) | payer OTHER ==
[2019-10-15 13:01] VITALS: BMI 35.7
[~2019-11-13 10:22] MED LIST changes: +AMIODARONE HCL200 MG PO; +LOW DOSE ASPIRI81 M1 PO; +METOPROLOL TART50 MG PO; +NORVASC10 MG PO; +PACERONE200 MG PO; +PERCOCET 5-3251 TAB PO
[2019-11-13 10:51] LABS: BASOPHILS 0.6 % (0-2); EOSINOPHILS 3.1 % (0-7); HEMATOCRIT 28.6 % (42.0-54.0); HEMOGLOBIN 9.3 g/dL (13.5-17.5); IMMATURE GRANULOCYTES 0.4 % (0-5); LYMPHOCYTES 28.2 % (15-50); MCH 30.7 pg (26.0-34.0); MCHC 32.5 g/dL (31.0-37.0); MCV 94.4 fL (80.0-100.0); MEAN PLATELET VOLUME 9.2 fL (7.4-10.4); MONOCYTES 10.6 % (2-11); NEUTROPHILS 57.1 % (40-80); PLATELET COUNT 296 10x3/uL (130-400); RBC 3.03 10x6/uL (4.20-6.10); RDW 13.3 % (11.5-14.5); WBC 7.1 10x3/uL (4.8-10.8)
[2019-11-13 10:55] LABS: ANION GAP 16.7 mmol/L (8-16); CALCIUM 8.3 mg/dL (8.5-10.1); CARBON DIOXIDE 19.5 mmol/L (21.0-32.0); CREATININE - SERUM 4.3 mg/dL (0.6-1.3); POTASSIUM - SERUM 4.2 mmol/L (3.5-5.1)
== END | disposition home or self-care (01) ==
LOC: D.LAB 10:22
PROVIDERS: ATTEND Thoracic Surgery (Cardiothoracic Vascular Surgery)
DX: Z98.890 Other specified postprocedural states (principal)

== ENCOUNTER 2020-08-13 07:43 | Day surgery (SDC) | payer OTHER ==
[~2020-08-13] VITALS: Ht 170.2 cm; Wt 90.9 kg
--- NOTE | ~2020-08-13 | OP ---
PATIENT NAME: SARAH LAGOS MEDICAL RECORD: [id number] LOCATION:D[facility] ADMISSION DATE: SURGEON: ERUM BANSAL MD DATE OF OPERATION: 08/13/2020 PREOPERATIVE DIAGNOSIS: Screening colonoscopy. HISTORY: Mr. Lagos is a pleasant 60-year-old male who is having a screening colonoscopy. He also has a history of renal disease and is on the kidney transplant list. ANESTHESIA: Propofol per anesthesia. PROCEDURE: Colonoscopy was performed. DESCRIPTION OF PROCEDURE: The colonoscope was inserted through the rectum and advanced to the cecum, identified by the ileocecal valve and the appendiceal orifice. The quality of the prep was good. There were a few sigmoid diverticula visualized in the sigmoid colon. In the ascending colon, was a small 2-mm polyp. This was removed with cold biopsy forceps. In the descending colon, was another small polyp removed with cold biopsy forceps. In the distal descending colon, was a 4-mm polyp removed with hot biopsy forceps. There was mild bleeding after this polypectomy; therefore, one endoclip was placed successfully. In the proximal sigmoid colon, there was a 5-mm polyp removed with hot snare polypectomy. The patient tolerated the procedure well. There were no immediate complications. The prep was good. FINAL DIAGNOSES: Sigmoid diverticula, multiple polyps as outlined above. All polyps were removed and sent for histology. PLAN: Advance diet, check histology results. Given multiple polyps, I do recommend repeat colonoscopy in 1-2 years. Followup in GI clinic. TRANSINT:[id number] Voice Confirmation ID: [id number] DOCUMENT ID: [id number] ERUM BANSAL MD CC: [id number] DICTATION DATE: 08/13/20 112 CASING IN LINE SETTER: 08/13/20 1154 [facility] [address] [id number]
[2020-08-13 08:11] LABS: BASOPHILS 1.1 % (0-2); EOSINOPHILS 1.6 % (0-7); HEMATOCRIT 34.2 % (42.0-54.0); HEMOGLOBIN 11.6 g/dL (13.5-17.5); LYMPHOCYTES 25.9 % (15-50); MCH 32.3 pg (26.0-34.0); MCV 94.9 fL (80.0-100.0); MEAN PLATELET VOLUME 7.8 fL (7.4-10.4); MONOCYTES 8.7 % (2-11); NEUTROPHILS 62.7 % (40-80); RDW 13.6 % (11.5-14.5); WBC 7.9 10x3/uL (4.8-10.8)
[2020-08-13 08:18] LABS: PLATELET COUNT 234 10x3/uL (130-400)
[2020-08-13 08:21] LABS: ANION GAP 17.9 mmol/L (8-16); CALCIUM 8.6 mg/dL (8.5-10.1); CARBON DIOXIDE 17.6 mmol/L (21.0-32.0); CREATININE - SERUM 4.9 mg/dL (0.6-1.3); POTASSIUM - SERUM 4.5 mmol/L (3.5-5.1)
[2020-08-13 08:56] VITALS: BP 132/78; Ht 170.2 cm; Wt 90.9 kg
--- NOTE | 2020-08-13 12:10 | NUR ---
DC TEACHING COMPLETE, VERBALIZED UNDERSTANDING. PIV REMOVED, CATHETER INTACT. PT GETTING DRESSED. 1221 PT DC'D VIA WC TO POV WITH FRIEND DRIVING. PT HAS ALL BELONGINGS AND DC PACKET.
== END 2020-08-13 12:21 | disposition home or self-care (01) ==
LOC: D.OPS 07:43
PROVIDERS: Anesthesiology; ATTEND Internal Medicine Gastroenterology
DX: K63.5 Polyp of colon (principal); Z12.11 Encounter for screening for malignant neoplasm of colon; Z87.898 Personal history of other specified conditions; E03.9 Hypothyroidism, unspecified